=== PATIENT | male | born 1955 | race Caucasian/White ===

== ENCOUNTER → 2018-07-29 12:02 | Outpatient (CLI) | payer BC, SELFPAY ==
[2018-07-29 15:01] LABS: Anion Gap 9 (5-15); BUN 21 mg/dL (7-18); BUN/Creat Ratio 21.6 RATIO (10-20); Calcium,Total 9.1 mg/dL (8.5-10.1); Chloride 102 mmol/L (98-107); Cholesterol 230 mg/dL (200); Creatinine, Serum 0.97 mg/dL (0.70-1.30); EST Glomerular Filtration Rate 83 mL/min (>60); Est Glom Filt Rate - Afr Amer 101 mL/min (>60); Glucose 92 mg/dL (74-106); High Density Lipoprotein 39 mg/dL; PSA,Total - Annual Screen 1.54 ng/mL (0.00-4.00); Potassium 4.1 mmol/L (3.5-5.1); Sodium Level 139 mmol/L (136-145); Triglycerides 163 mg/dL; Very Low Density Lipoprotein 33 mg/dL (5-40)
== END ==
PROVIDERS: Visit Provider Family Medicine
DX: I10 Essential (primary) hypertension (principal); Z12.5 Encounter for screening for malignant neoplasm of prostate
CPT/HCPCS: 36415; 80048; 80061; 84153; G0103

== ENCOUNTER → 2019-05-18 09:37 | Outpatient (CLI) | payer BC, SELFPAY ==
[2019-05-18 12:39] LABS: ALB/GLOB Ratio 1.1 RATIO (0.9-2.4); AST(SGOT) 36 U/L (15-37); Alanine Aminotransfer ALT/SGPT 53 U/L (16-61); Albumin, Serum 3.9 g/dL (3.2-5.0); Alkaline Phosphatase 91 U/L (45-117); Anion Gap 6 (5-15); BUN 13 mg/dL (7-18); BUN/Creat Ratio 14.2 RATIO (10-20); Calcium,Total 8.6 mg/dL (8.5-10.1); Chloride 105 mmol/L (98-107); Cholesterol 237 mg/dL (200); Creatinine, Serum 0.92 mg/dL (0.70-1.30); EST Glomerular Filtration Rate 89 mL/min (>60); Est Glom Filt Rate - Afr Amer 107 mL/min (>60); Globulin 3.6 g/dL (2.2-4.2); Glucose 88 mg/dL (74-106); High Density Lipoprotein 41 mg/dL; Protein, Total 7.5 g/dL (6.4-8.2); Sodium Level 139 mmol/L (136-145); Triglycerides 161 mg/dL; Very Low Density Lipoprotein 32 mg/dL (5-40)
== END ==
PROVIDERS: Family Provider Family Medicine; PCP Family Medicine; Referring Provider Family Medicine; Visit Provider Family Medicine
DX: I10 Essential (primary) hypertension (principal); Z12.5 Encounter for screening for malignant neoplasm of prostate
CPT/HCPCS: 36415; 80053; 80061; 84153; G0103

== ENCOUNTER → 2020-07-20 09:24 | Outpatient (CLI) | payer BC, SELFPAY ==
[2020-07-20 10:35] LABS: ALB/GLOB Ratio 1.1 RATIO (0.9-2.4); AST(SGOT) 25 U/L (15-37); Alanine Aminotransfer ALT/SGPT 39 U/L (16-61); Albumin, Serum 3.7 g/dL (3.2-5.0); Alkaline Phosphatase 81 U/L (45-117); Anion Gap 4 (5-15); BUN 13 mg/dL (7-18); BUN/Creat Ratio 15.2 RATIO (10-20); Chloride 106 mmol/L (98-107); Creatinine, Serum 0.86 mg/dL (0.70-1.30); EST Glomerular Filtration Rate 96 mL/min (>60); Est Glom Filt Rate - Afr Amer 116 mL/min (>60); Globulin 3.5 g/dL (2.2-4.2); Glucose 94 mg/dL (74-106); PSA,Total - Annual Screen 2.05 ng/mL (0.00-4.00); Protein, Total 7.2 g/dL (6.4-8.2); Sodium Level 141 mmol/L (136-145)
== END ==
PROVIDERS: PCP Family Medicine; Referring Provider Family Medicine; Visit Provider Family Medicine
DX: E78.5 Hyperlipidemia, unspecified (principal); Z12.5 Encounter for screening for malignant neoplasm of prostate
CPT/HCPCS: 36415; 80053; 84153; G0103

== ENCOUNTER → 2021-01-10 09:53 | Outpatient (CLI) | payer BC, SELFPAY ==
[2021-01-10 13:05] LABS: ALB/GLOB Ratio 1.1 RATIO (0.9-2.4); AST(SGOT) 32 U/L (15-37); Alanine Aminotransfer ALT/SGPT 54 U/L (16-61); Albumin, Serum 3.9 g/dL (3.2-5.0); Alkaline Phosphatase 79 U/L (45-117); Anion Gap 5 (5-15); BUN 14 mg/dL (7-18); BUN/Creat Ratio 15.5 RATIO (10-20); Calcium,Total 9.2 mg/dL (8.5-10.1); Chloride 106 mmol/L (98-107); EST Glomerular Filtration Rate 90 mL/min (>60); Est Glom Filt Rate - Afr Amer 109 mL/min (>60); Globulin 3.4 g/dL (2.2-4.2); Glucose 102 mg/dL (74-106); Potassium 3.9 mmol/L (3.5-5.1); Protein, Total 7.3 g/dL (6.4-8.2); Sodium Level 138 mmol/L (136-145)
== END ==
PROVIDERS: PCP Family Medicine; Referring Provider Family Medicine; Visit Provider Family Medicine
DX: E78.5 Hyperlipidemia, unspecified (principal); Z12.5 Encounter for screening for malignant neoplasm of prostate
CPT/HCPCS: 36415; 80053

== ENCOUNTER → 2022-02-18 | Outpatient (CLI) | payer BC, SELFPAY ==
[2022-02-18 13:03] LABS: AST(SGOT) 36 U/L (15-37); Alanine Aminotransfer ALT/SGPT 67 U/L (16-61); Albumin, Serum 3.7 g/dL (3.2-5.0); Alkaline Phosphatase 71 U/L (45-117); Anion Gap 3 (5-15); BUN 15 mg/dL (7-18); BUN/Creat Ratio 16.9 RATIO (10-20); Calcium,Total 9.1 mg/dL (8.5-10.1); Chloride 105 mmol/L (98-107); Cholesterol 150 mg/dL (200); Creatinine, Serum 0.89 mg/dL (0.70-1.30); EST Glomerular Filtration Rate 91 mL/min (>60); Est Glom Filt Rate - Afr Amer 111 mL/min (>60); Globulin 3.6 g/dL (2.2-4.2); Glucose 97 mg/dL (74-106); High Density Lipoprotein 45 mg/dL; Potassium 4.4 mmol/L (3.5-5.1); Protein, Total 7.3 g/dL (6.4-8.2); Sodium Level 139 mmol/L (136-145); Triglycerides 123 mg/dL
[2022-02-18 13:04] LABS: PSA,Total - Annual Screen 2.07 ng/mL (0.00-4.00); Very Low Density Lipoprotein 25 mg/dL (5-40)
== END | disposition home or self-care (01) ==
LOC: MFPLAB 09:31
PROVIDERS: PCP Family Medicine; Visit Provider Family Medicine
DX: E78.5 Hyperlipidemia, unspecified (principal); I10 Essential (primary) hypertension; Z12.5 Encounter for screening for malignant neoplasm of prostate
CPT/HCPCS: 36415; 80053; 80061; 84153; G0103

== ENCOUNTER → 2024-01-07 | Outpatient (CLI) | payer BC, SELFPAY ==
[2024-01-07 12:46] LABS: ALB/GLOB Ratio 1.1 RATIO (0.9-2.4); AST(SGOT) 49 U/L (15-37); Alanine Aminotransfer ALT/SGPT 59 U/L (16-61); Albumin, Serum 3.8 g/dL (3.2-5.0); Alkaline Phosphatase 69 U/L (45-117); Anion Gap 6 (5-15); BUN 20 mg/dL (7-18); BUN/Creat Ratio 20.2 RATIO (10-20); Calcium,Total 8.8 mg/dL (8.5-10.1); Chloride 103 mmol/L (98-107); Cholesterol 240 mg/dL (200); Creatinine, Serum 0.99 mg/dL (0.70-1.30); EST Glomerular Filtration Rate 80 mL/min (>60); Est Glom Filt Rate - Afr Amer 97 mL/min (>60); Globulin 3.4 g/dL (2.2-4.2); Glucose 104 mg/dL (74-106); High Density Lipoprotein 38 mg/dL; PSA,Total - Annual Screen 2.47 ng/mL (0.00-4.00); Potassium 3.7 mmol/L (3.5-5.1); Protein, Total 7.2 g/dL (6.4-8.2); Sodium Level 137 mmol/L (136-145); Triglycerides 192 mg/dL; Very Low Density Lipoprotein 38 mg/dL (5-40)
[2024-01-07 18:33] LABS: Microalbumin,Random Urine 18.5 mg/L (NO RANGE EST.)
== END | disposition home or self-care (01) ==
LOC: MFPLAB 10:05
PROVIDERS: PCP Family Medicine; Visit Provider Family Medicine
DX: E78.5 Hyperlipidemia, unspecified (principal); Z12.5 Encounter for screening for malignant neoplasm of prostate
CPT/HCPCS: 36415; 80053; 80061; 82043; 84153; G0103

== ENCOUNTER → 2025-02-07 | Outpatient (CLI) | payer MEDICARE, SELFPAY ==
[2025-02-07 12:58] LABS: ALB/GLOB Ratio 1.5 RATIO (0.9-2.4); AST(SGOT) 37 U/L (<=37); Alanine Aminotransfer ALT/SGPT 46 U/L (<=46); Albumin, Serum 4.3 g/dL (3.4-4.8); Alkaline Phosphatase 73 U/L (40-129); Anion Gap 13 (5-15); BUN 19 mg/dL (4-19); BUN/Creat Ratio 21.4 RATIO (10-20); Calcium,Total 9.5 mg/dL (7.6-11.0); Carbon Dioxide 25.8 mmol/L (21.0-32.0); Chloride 102 mmol/L (98-108); Creatinine, Serum 0.87 mg/dL (0.70-1.20); EST Glomerular Filtration Rate 94 (>60); Globulin 2.8 g/dL (2.2-4.2); Glucose 100 mg/dL (70-99); PSA,Total - Annual Screen 1.86 ng/mL (0.02-4.00); Potassium 3.8 mmol/L (3.3-5.1); Sodium Level 140 mmol/L (133-145); Total Bilirubin 0.57 mg/dL (0.00-1.30)
== END | disposition home or self-care (01) ==
LOC: MFPLAB 10:01
PROVIDERS: PCP Family Medicine; Referring Provider Family Medicine; Visit Provider Family Medicine
DX: Z00.00 Encounter for general adult medical examination without abnormal findings (principal); E78.5 Hyperlipidemia, unspecified; Z12.5 Encounter for screening for malignant neoplasm of prostate
CPT/HCPCS: 36415; 80053; 84153; G0103

== ENCOUNTER → 2025-07-06 | Outpatient (CLI) | payer MEDICARE, SELFPAY ==
[2025-07-06 10:44] LABS: Hematocrit 43.2 % (40-54); Hemoglobin 14.5 g/dL (13.0-16.5); Immature Granulocytes Count 0.040 X10^3/uL (0.0-0.0); Mean Corp Hgb Conc 33.6 g/dL (32-36); Mean Corpuscular Volume 88.0 fL (80-94); Mean Platelet Vol. 11.5 fl (6.2-12.0); NRBC Flagged by Analyzer 0 % (0-5); Platelet Count 201 K/mm3 (150-450); RBC Distribution Width CV 12.8 % (11.6-14.6); RBC Distribution Width SD 41.1 fl (35.1-43.9); Red Blood Count 4.91 M/mm3 (4.6-6.2); White Blood Count 8.6 K/mm3 (4.4-11.0)
[2025-07-06 11:14] LABS: Anion Gap 10 (5-15); BUN 16 mg/dL (4-19); BUN/Creat Ratio 18.5 RATIO (10-20); Calcium,Total 9.6 mg/dL (7.6-11.0); Carbon Dioxide 28.4 mmol/L (21.0-32.0); Chloride 100 mmol/L (98-108); Glucose 103 mg/dL (70-99); Potassium 4.0 mmol/L (3.3-5.1)
== END | disposition home or self-care (01) ==
LOC: LAB 10:11
PROVIDERS: PCP Family Medicine; Referring Provider Internal Medicine Cardiovascular Disease; Visit Provider Internal Medicine Cardiovascular Disease
DX: I25.10 Atherosclerotic heart disease of native coronary artery without angina pectoris (principal); I10 Essential (primary) hypertension; R94.30 Abnormal result of cardiovascular function study, unspecified
CPT/HCPCS: 36415; 80048; 85025

== ENCOUNTER 2025-07-19 06:58 | Day surgery (SDC) | payer MEDICARE, OTHER, SELFPAY ==
[2025-07-18 10:48] VITALS: BMI 34.2
--- OUTSIDE RECORDS SUMMARY | 2025-07-19 07:05 | XMS RPT_ITS | CCD ---
Author Organization [facility] Care Team Providers Care Operations Manager Assistant Name Role Phone Fabby HUGHES, Dr. Sherman Primary Care Provider Fabby HUGHES, Dr. Sherman Attending Provider 1( [phone] Fabby HUGHES, Dr. Sherman Referring Provider Fabby HUGHES, Dr. Sherman Primary Care Physicia n Fabby HUGHES, Dr. Sherman Attending Physician Fabby HUGHES, Dr. Sherman Referring Provider Angel HUGHES, Dr. Hodgson Attending Physician [phone] Sreekanth Ortizril Attending Unavailable Sreekanth Ortizril Referring Unavailable Lane Sequeira Primary Care Unavailable Lane Sequeira Primary Care Unavailable Lane Sequeira Attending Unavailable Lane Sequeira Referring Unavailable AngelSreekanth wallril Attending Unavailable AngelSreekanth wallril Referring Unavailable Lane Sequeira Primary Care Unavailable Lane Sequeira Primary Care Unavailable Angel, Clendenin Attending Unavailable Lane Sequeira Referring Unavailable Lane Sequeira Primary Care Unavailable Angel, Gokul Attending Unavailable Lane Sequeira Referring Unavailable Lane Sequeira Primary Care Unavailable Lane Sequeira Attending Unavailable Lane Sequeira Referring Unavailable Allergies Allergy Classification Reported Allergen(s) Allergy Type Date of Onset Reaction(s) Facility (1 source) Ramipril Drug Allergy 07-06-2025 Other [facility] (1 source) Ramipril Drug Allergy 07-06-2025 [facility] Repository Medications Current Medications Medication Drug Class(es) Dates Sig (Normalized) Sig (Original) amLODIPine 5 mg oral tablet (1 source) Dihydropyridine Calcium Channel Kedar Start: 07-06-20 take 1 tablet by mouth once daily Amlodipine 5 mg tablet Active 5 mg PO daily July 06, 2025 12:00am Complies with drug therapy aspirin 81 mg delayed release oral tablet (1 source) Platelet Aggregation Inhibitor, Nonsteroidal Anti-inflammatory Drug Start: 07-06-20 take 1 tablet by mouth once daily Aspirin 81 mg tablet,delayed release (DR/EC) Active 81 mg PO daily July 06, 2025 12:00am Complies with drug therapy atorvastatin 40 mg oral tablet (1 source) HMG-CoA Reductase Inhibitor Start: 07-06-20 take 1 tablet by mouth once daily Atorvastatin 40 mg tablet Active 40 mg PO daily July 06, 2025 12:00am Complies with drug therapy hydroCHLOROthiazide 25 mg oral tablet (1 source) Thiazide Diuretic Start: 06-02-20 take 1 tablet by mouth once daily Hydrochlorothiazide 25 mg tablet Active 25 mg PO daily June 02, 2025 12:00am Complies with drug therapy losartan potassium 100 mg oral tablet (1 source) Angiotensin 2 Receptor Kedar Start: 06-02-20 take 1 tablet by mouth once daily Losartan 100 mg tablet Active 100 mg PO daily June 02, 2025 12:00am Complies with drug therapy Problems Problem Classification Problem Date Documented Date Episodic/Chronic Abdominal pain (1 source) Indigestion; Translations: [Epigastric pain] 06-02-2025 Episodic Coronary atherosclerosis and other heart disease (1 source) 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; Translations: [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] Onset: 07-06-2025 Chronic Disorders of lipid metabolism (3 sources) Hyperlipidemia; Translations: [Hyperlipidemia, unspecified] Onset: 05-11-2025 06-02-2025 Chronic Essential hypertension (3 sources) Essential hypertension; Translations: [Essential (primary) hypertension] Onset: 07-06-2025 06-02-2025 Chronic Other screening for suspected conditions (not mental disorders or infectious disease) (4 sources) Cardiac function test abnormal; Translations: [Abnormal result of cardiovascular function study, unspecified] Onset: 07-06-2025 06-02-2025 Episodic Results Test Name Value Interpretation Reference Range Facility Basic Metabolic Profile (BMP )on 10-08-2025 BUN/CRE 18.5 RATIO Normal 10-20 [facility] Comment on above: Performed By: #### L 500.2500, L100.0100 #### [facility] [address] [place], [address] Calcium [Mass/Vol] 9.6 mg/dL Normal 7.6-11.0 [facility] Comment on above: Performed By: #### L 500.2500, L100.0100 #### [facility] [address] [place], [address] Chloride [Moles/Vol] 100 mmol/L Normal 98-108 [facility] Comment on above: Performed By: #### L 500.2500, L100.0100 #### [facility] [address] [place], [address] CO2 [Moles/Vol] 28.4 mmol/L Normal 21.0-32.0 [facility] Comment on above: Performed By: #### L 500.2500, L100.0100 #### [facility] [address] [place], [address] Creatinine [Mass/Vol] 0.86 mg/dL Normal 0.70-1.20 [facility] Comment on above: Performed By: #### L 500.2500, L100.0100 #### [facility] [address] [place], [address] GAP 10 Normal 5-15 [facility] Comment on above: Performed By: #### L 500.2500, L100.0100 #### [facility] [address] [place], [address] GFR/1.73 sq M.predicted among non-blacks MDRD (S/P/Bld) [Vol rate/Area] 94 mL/min/{1.73_m2} Normal >60 [facility] Comment on above: Result Comment: mL/m in/1.73m2 CKD-EPI Creatinine Equation (2020) Performed By: #### L 500.2500, L100.0100 #### [facility] [address] [place], [address] Glucose [Mass/Vol] 103 mg/dL High 70-99 [facility] Comment on above: Performed By: #### L 500.2500, L100.0100 #### [facility] [address] [place], [address] Potassium [Moles/Vol] 4.0 mmol/L Normal 3.3-5.1 [facility] Comment on above: Performed By: #### L 500.2500, L100.0100 #### [facility] [address] [place], [address] Sodium [Moles/Vol] 139 mmol/L Normal 133-145 [facility] Comment on above: Performed By: #### L 500.2500, L100.0100 #### [facility] [address] [place], [address] Urea nitrogen [Mass/Vol] 16 mg/dL Normal 4-19 [facility] Comment on above: Performed By: #### L 500.2500, L100.0100 #### [facility] [address] [place], [address] CBC W/Diff, Automatedon 10-0 Absolute Lymph 2.68 X10 3/uL Normal 0.83-4.51 [facility] Comment on above: Performed By: #### L 500.2500, L100.0100 #### [facility] [address] [place], [address] Absolute Neut 4.8 X10 3/uL Normal 2.0-7.7 [facility] Comment on above: Performed By: #### L 500.2500, L100.0100 #### [facility] [address] [place], [address] Basophils/100 WBC (Bld) 0.9 % Normal 0-1 [facility] Comment on above: Performed By: #### L 500.2500, L100.0100 #### [facility] [address] [place], [address] Eosinophils/100 WBC (Bld) 2.2 % Normal 0-5 [facility] Comment on above: Performed By: #### L 500.2500, L100.0100 #### [facility] [address] [place], [address] Erythrocyte distribution width (RBC) [Ratio] 12.8 % Normal 11.6-14.6 [facility] Comment on above: Performed By: #### L 500.2500, L100.0100 #### [facility] [address] [place], [address] Hematocrit (Bld) [Volume fraction] 43.2 % Normal 40-54 [facility] Comment on above: Performed By: #### L 500.2500, L100.0100 #### [facility] [address] [place], [address] Hemoglobin (Bld) [Mass/Vol] 14.5 g/dL Normal 13.0-16.5 [facility] Comment on above: Performed By: #### L 500.2500, L100.0100 #### [facility] [address] [place], [address] IG% 0.500 Normal 0.0-0.9 [facility] Comment on above: Result Comment: IG% - Immature Granulocytes (promyelocytes, myelocytes and metamyelocytes) > 1% indicates that a LEFT SHIFT is Present. Performed By: #### L 500.2500, L100.0100 #### [facility] [address] [place], [address] Lymphocytes/100 WBC (Bld) 31.1 % Normal 19-41 [facility] Comment on above: Performed By: #### L 500.2500, L100.0100 #### [facility] [address] [place], [address] MCH (RBC) [Entitic mass] 29.5 pg Normal 27.0-32.0 [facility] Comment on above: Performed By: #### L 500.2500, L100.0100 #### [facility] [address] [place], [address] MCHC (RBC) [Mass/Vol] 33.6 g/dL Normal 32-36 [facility] Comment on above: Performed By: #### L 500.2500, L100.0100 #### [facility] [address] [place], [address] MCV (RBC) [Entitic vol] 88.0 fL Normal 80-94 [facility] Comment on above: Performed By: #### L 500.2500, L100.0100 #### [facility] [address] [place], [address] Monocytes/100 WBC (Bld) 9.4 % Normal 0-10 [facility] Comment on above: Performed By: #### L 500.2500, L100.0100 #### [facility] [address] [place], [address] Neutrophils/100 WBC (Bld) 55.9 % Normal 47-70 [facility] Comment on above: Performed By: #### L 500.2500, L100.0100 #### [facility] [address] [place], [address] Nucleated RBC (Bld) [#/Vol] 0 10*3/uL Normal 0-5 [facility] Comment on above: Performed By: #### L 500.2500, L100.0100 #### [facility] [address] [place], [address] Platelet mean volume (Bld) [Entitic vol] 11.5 fL Normal 6.2-12.0 [facility] Comment on above: Performed By: #### L 500.2500, L100.0100 #### [facility] [address] [place], [address] Platelets (Bld) [#/Vol] 201 10*3/uL Normal 150-450 [facility] Comment on above: Performed By: #### L 500.2500, L100.0100 #### [facility] [address] [place], [address] RBC (Bld) [#/Vol] 4.91 10*6/uL Normal 4.6-6.2 [facility] Comment on above: Performed By: #### L 500.2500, L100.0100 #### [facility] [address] [place], [address] RDW SD 41.1 fl Normal 35.1-43.9 [facility] Comment on above: Performed By: #### L 500.2500, L100.0100 #### [facility] [address] [place], [address] WBC (Bld) [#/Vol] 8.6 10*3/uL Normal 4.4-11.0 [facility] Comment on above: Performed By: #### L 500.2500, L100.0100 #### [facility] [address] [place], [address] Cardiology Visit Reporton Cardiology Visit Report [facility] [address] [place] [address] OFFICE VISIT Date of Service: 07/06/25 MR#: [id number] Acct: [id number] Name: LANE PEREZ MICAELA Rep #: [id number] : 1955 Provider: Dr. Gokul Ortiz MD Age/Sex: 70/M Location: [facility] [place] Status: Signed HPI HPI History of Present Illness Details: Pleasant 70-year-old male with a history of hypertension, hyperlipidemia, who underwent a routine coronary calcium score which was noted to be markedly abnormal. He is denied any chest pain or shortness breath or paroxysmal nocturnal dyspnea or pedal edema he has had no neck arm or jaw discomfort suggest angina. He tells me that he plays routine tennis and actually does well at it and after his second wind he is able to play through it without any problems. He has been on lipid- lowering therapy intermittently but his last lipid profile did demonstrate an LDL of 164 HDL of 38 and total cholesterol of 240. His coronary calcium score demonstrated a total calcium score of 2227 with a left main demonstrating 143, LAD of 930, left circumflex of 485 and right coronary artery of 669. He was referred to us on the basis of the above. His physical exam is unremarkable and his electrocardiogram demonstrates sinus rhythm with a rate of 71 bpm and no acute changes. Intake Vital Signs 07/06/25 09:35 Height 5 ft 11 in Weight: 245 lb BMI 34.2 BP 150/92 H Blood Pressure Location Lt brachial Position Sitting Respiration 16 Pulse 73 Pulse Source Monitor Intake Visit Reasons: ABN CCTA (FABBY) Accompanied by: Self Is patient in pain?: No Allergies ramipril Allergy (Severe, Verified 07/06/25 09:32) Other Medications ???Medication ???Instructions ???Recorded ???Confirmed ???Type hydrochlorothiazide 25 mg tablet 25 mg PO QDAY 06/02/25 07/06/25 Hi story losartan 100 mg tablet 100 mg PO QDAY 06/02/25 07/06/25 H istory amlodipine 5 mg tablet 5 mg PO QDAY 07/06/25 07/06/25 His tory aspirin 81 mg tablet,delayed 81 mg PO QDAY 07/06/25 07/06/25 Hi story release atorvastatin 40 mg tablet 40 mg PO QDAY 07/06/25 07/06/25 Hi story Have you fallen in the past year?: No PFSH Medical History Dyspepsia Hyperlipidemia Essential (primary) hypertension Cardiac function test abnormal Surgical History Hx of hand surgery Social History Smoking Status: Never smoker alcohol intake: current alcohol intake frequency: holidays/special occasions only substance use type: does not use ROS Const Const: Negative for fatigue, weakness, daytime sleepiness or difficulty sleeping ENT ENT: Negative for dizziness or Nosebleed/epistaxis Cardio Chest Pain: No Palpitations: No Edema: None Resp Respiratory: Negative for SOB with activity, SOB at rest, SOB orthopnea SOB lying down or Cough GI GI: Negative nausea, vomiting or heartburn Neuro Neuro: Negative for dizziness, lightheadedness, near syncope or weakness Endo Endo: Negative for fatigue Cardiology Exam Const Appearance: cooperative, healthy appearing, no acute distress, well developed and well groomed Nutritional Appearance: average body habitus and well nourished Orientation: alert, awake and oriented x3 Head Head: normal to inspection, normocephalic and atraumatic Ears: hearing grossly normal bilaterally and external ears normal Nose: external nose normal, nares normal, nasal mucous membranes and turbinates normal, septum normal and no nasal discharge Face and Sinus: face symmetric Mouth: oral mucosae normal, tongue normal, oropharynx normal and moist mucous membranes Teeth and gingiva: dentition normal Throat: posterior oropharynx normal, tonsils normal and uvula midline Eyes General: appearance normal, both eyes and all related structures Eyelids: eyelids normal Conjunctivae: conjunctivae normal Pupils: PERRL, normal by confrontation and accommodation normal EOM: EOM intact bilaterally Neck Neck: normal visual inspection, trachea midline and no JVD JVD: +5 Carotids: normal carotid upstroke and bounding pulses Chest Chest inspection: normal inspection of the chest, symmetric chest movement and normal respiratory effort Auscultation: Bilateral: Clear to Auscultation Cardio Palpation: normal PMI Rate: regular rate Rhythm: regular rhythm Heart sounds: S1 normal, S2 normal and normal, physiologic split S2; Negative rub, gallop or murmur GI GI: normal to inspection, soft, no hepatosplenomegaly and bowel sounds present Neuro General: patient alert, patient awake, patient oriented x3, gait normal, moves all extremities and no focal sensory deficit Skin Skin: n (more content not included)... Normal [facility] Coronary Angiography CTon Coronary Angiography CT [facility] Imaging Services [address] [place] [address] 05/12/25 0650 MR#: [id number] Acct: [id number] Name: LANE PEREZ Rep #: [id number] : 1955 69 From: Gokul Ortiz MD PCP: Dr. Lane Sequeira MD Status:REG REF Y Location: CT Calcium Scoring Date of Study:: 05/11/25 Indications Indications: Hyperlipidemia Coronary Calcium Scoring: High-resolution Computed Tomographic imaging of the chest was performed on [05/11/2025], with particular attention paid to the coronary arteries. Images from the examination were analyzed for the presence and extent of coronary artery calcification , using coronary calcium quantification software. The patient tolerated the procedure well and there were no complications. The results of the coronary calcification analysis are provided below. Findings Coronary Artery Left Main (LM): 143 Left Anterior Descending (LAD): 930 Left Circumflex (LCX): 485 Right Coronary Artery (RCA): 669 Total Agatston Score: 2,227 Percentile Ranking: Greater than 90th percentile Calcium Scoring Interpretation: Different methods to categorize the overall amount of coronary plaque. Overall amount CAC SIS Visual of coronary plaque P1 Mild -100 <2 1-2 vessels with mild amount of plaque P2 Moderate 101-300 3-4 1-2 vessels with moderate amount, 3 vessels with mild amount of plaque P3 Severe 301-999 5-7 3 vessels with moderate amount, 1 vessel with severe amount of plaque P4 Extensive >1000 >8 2-3 vessels with severe amount of plaque Calcium Score: Extensive: 2-3 vessels w/severe amount of plaque Conclusion: Extensive three-vessel plaquing noted. 05/12/25 0652 Date Gokul Fishman Signature (if applicable): Date CC: Dr. Lane Sequeira MD; Dr. Gokul Ortiz MD Signed Normal [facility] Limited Chest CT Cardiac Onl yon 05-11-[address] Cardiac Only [facility] Imaging Services [address] [place], [place] [address] Limited Chest CT Cardiac Only MR#: [id number] Acct: [id number] Name: LANE PEREZ Rep #: [id number] : 1955 M Aaron From: Francisco garber MD PCP: Dr. Lane Sequeira MD Status: REG REF Study: Limited Chest CT Cardiac Only Date of Exam: Exam# [id number] Ordering Dr: Lane Sequeira PROCEDURE: LIMITED CHEST CT CARDIAC ONLY 05/11/2025 REASON FOR EXAM: HYPERLIPIDEMIA TECHNIQUE: LIMITED CHEST CT CARDIAC ONLY CONT RAST: None One or more dose reduction techniques were used (e.g., Automated exposure control, adjustment of the mA and/or kV according to patient size, use of iterative reconstruction technique). RADIATION DOSE SUMMARY: CTDlvol: 12.19 mGy DLP: 219.40 mGycm COMPARISON: None FINDINGS: Small benign-appearing mediastinal lymph nodes. Moderate degree of coronary artery calcification. The heart is not enlarged. Minimal thickening of the anterior pericardium. The visualized portions of the lungs are unremarkable. CT/Limited Chest CT Cardiac Only IMPRESSION: Coronary artery calcification. Reading Location: [id number] CC: Dr. Lane Sequeira MD [employer] Lead: Signed Normal [facility] Anion gap in Serum or Plasma Ordered By: Lane Sequeira on 02-07-2025 Anion gap [Moles/Vol] 13 mmol/L 5-15 [facility] BUN/creatinine ratioOrdered By: Lane Sequeira on 02-07-2025 Urea nitrogen/Creatinine [Mass ratio] 21.4 mg/mg High 10-20 [facility] Bilirubin, totalOrdered By: Lane Sequeira on 02-07-2025 Bilirubin [Mass/Vol] 0.57 mg/dL 0.00-1.30 [facility] Carbon dioxide, total [Moles /volume] in Central venous bloodOrdered By: Lane Sequeira on 02-07-2025 CO2 [Moles/Vol] 25.8 mmol/L 21.0-32.0 [facility] Chloride assayOrdered By: Freddie Sequeira on 02-07-2025 Chloride [Moles/Vol] 102 mmol/L 98-108 [facility] Comprehensive Metabolic Prof ilon 02-07-2025 Albumin [Mass/Vol] 4.3 g/dL Normal 3.4-4.8 [facility] Comment on above: Performed By: #### L 501.9910, L500.4050 #### [facility] [address] [place], [address] Albumin/Globulin [Mass ratio] 1.5 {ratio} Normal 0.9-2.4 [facility] Comment on above: Performed By: #### L 501.9910, L500.4050 #### [facility] [address] [place], [address] ALK PHOS 73 U/L Normal 40-129 [facility] Comment on above: Performed By: #### L 501.9910, L500.4050 #### [facility] [address] [place], [address] ALT [Catalytic activity/Vol] 46 U/L Normal <=46 [facility] Comment on above: Performed By: #### L 501.9910, L500.4050 #### [facility] [address] [place], [address] AST [Catalytic activity/Vol] 37 U/L Normal <=37 [facility] Comment on above: Performed By: #### L 501.9910, L500.4050 #### [facility] [address] [place], [address] Bilirubin [Mass/Vol] 0.57 mg/dL Normal 0.00-1.30 [facility] Comment on above: Performed By: #### L 501.9910, L500.4050 #### [facility] [address] [place], [address] BUN/CRE 21.4 RATIO High 10-20 [facility] Comment on above: Performed By: #### L 501.9910, L500.4050 #### [facility] [address] [place], [address] Calcium [Mass/Vol] 9.5 mg/dL Normal 7.6-11.0 [facility] Comment on above: Performed By: #### L 501.9910, L500.4050 #### [facility] [address] [place], [address] Chloride [Moles/Vol] 102 mmol/L Normal 98-108 [facility] Comment on above: Performed By: #### L 501.9910, L500.4050 #### [facility] [address] [place], [address] CO2 [Moles/Vol] 25.8 mmol/L Normal 21.0-32.0 [facility] Comment on above: Performed By: #### L 501.9910, L500.4050 #### [facility] [address] [place], [address] Creatinine [Mass/Vol] 0.87 mg/dL Normal 0.70-1.20 [facility] Comment on above: Performed By: #### L 501.9910, L500.4050 #### [facility] [address] [place], [address] GAP 13 Normal 5-15 [facility] Comment on above: Performed By: #### L 501.9910, L500.4050 #### [facility] [address] [place], [address] GFR/1.73 sq M.predicted among non-blacks MDRD (S/P/Bld) [Vol rate/Area] 94 mL/min/{1.73_m2} Normal >60 [facility] Comment on above: Result Comment: mL/m in/1.73m2 CKD-EPI Creatinine Equation (2020) Performed By: #### L 501.9910, L500.4050 #### [facility] [address] [place], [address] Globulin (S) [Mass/Vol] 2.8 g/dL Normal 2.2-4.2 [facility] Comment on above: Performed By: #### L 501.9910, L500.4050 #### [facility] [address] [place], [address] Glucose [Mass/Vol] 100 mg/dL High 70-99 [facility] Comment on above: Performed By: #### L 501.9910, L500.4050 #### [facility] [address] [place], [address] Potassium [Moles/Vol] 3.8 mmol/L Normal 3.3-5.1 [facility] Comment on above: Performed By: #### L 501.9910, [id number] #### [facility] [address] [place], [address] Sodium [Moles/Vol] 140 mmol/L Normal 133-145 [facility] Comment on above: Performed By: #### L [id number], [id number] #### [facility] [address] [place], [address] T PROT 7.0 g/dL Normal 5.9-8.4 [facility] Comment on above: Performed By: #### L [id number], [id number] #### [facility] [address] [place], [address] Urea nitrogen [Mass/Vol] 19 mg/dL Normal 4-19 [facility] Comment on above: Performed By: #### L [id number], [id number] #### [facility] [address] [place], [place], [address] Glomerular filtration rate ( GFR) estimation/1.73 sq m using serum, plasma, or whole bOrdered By: Lane Sequeira on 02-07-2025 GFR/1.73 sq M.predicted among non-blacks MDRD (S/P/Bld) [Vol rate/Area] 94 mL/min/{1.73_m2} >60 [facility] Comment on above: mL/min/1.73m2 CKD-EP I Creatinine Equation (2020) Laboratory - Chemistry and C hemistry - challengeOrdered By: Lane Sequeira on 02-07-2025 AST [Catalytic activity/Vol] 37 U/L <38 [facility] PSA,Total - Annual Screenon 02-07-2025 PSA,TOT SCREEN 1.86 ng/mL Normal 0.02-4.00 [facility] Comment on above: Result Comment: This test was performed using the [employer] tPSA method. Measured values of a patient??sample can vary depending on the testing procedure used. PSA values determined on patient samples by different testing procedures cannot be used interchangeably. If there is a change in PSA assays while monitoring therapy, sequential testing should be performed to confirm baseline values. Performed By: #### L 501.9910, [id number] #### [facility] [address] [place], [address] Potassium measurement (mass/ volume)Ordered By: Lane Sequeira on 02-07-2025 Potassium (Unsp spec) [Mass/Vol] 3.8 mmol/L 3.3-5.1 [facility] Serum creatinine measurement (mass/volume)Ordered By: Lane Sequeira on 02-07-2025 Creatinine [Mass/Vol] 0.87 mg/dL 0.70-1.20 [facility] Serum globulin measurementOr dered By: Lane Sequeira on 02-07-2025 Globulin (S) [Mass/Vol] 2.8 g/dL 2.2-4.2 [facility] Serum glucose measurement (m ass/volume)Ordered By: Lane Sequeira on 02-07-2025 Glucose [Mass/Vol] 100 mg/dL High 70-99 [facility] Serum or plasma alanine mcneil otransferase (ALT) measurementOrdered By: Lane Sequeira on 02-07-2025 ALT [Catalytic activity/Vol] 46 U/L <47 [facility] Serum or plasma albumin lópez urement (mass/volume)Ordered By: Lane Sequeira on 02-07-2025 Albumin [Mass/Vol] 4.3 g/dL 3.4-4.8 [facility] Serum or plasma albumin/glob ulin mass ratioOrdered By: Lane Sequeira on 02-07-2025 Albumin/Globulin [Mass ratio] 1.5 {ratio} 0.9-2.4 [facility] Serum or plasma alkaline adonay sphatase measurementOrdered By: Lane Sequeira on 02-07-2025 ALP [Catalytic activity/Vol] 73 U/L 40-129 [facility] Serum or plasma calcium lópez urement (mass/volume)Ordered By: Lane Sequeira on 02-07-2025 Calcium [Mass/Vol] 9.5 mg/dL 7.6-11.0 [facility] Serum or plasma urea nitroge n measurement (mass/volume)Ordered By: Lane Sequeira on 02-07-2025 Urea nitrogen [Mass/Vol] 19 mg/dL 4-19 [facility] Sodium levelOrdered By: Ellyn Sequeira on 02-07-2025 Sodium [Moles/Vol] 140 mmol/L 133-145 [facility] Total proteinOrdered By: Ban istopher Sequeira on 02-07-2025 Protein [Mass/Vol] 7.0 g/dL 5.9-8.4 [facility] Basophil percentageOrdered B y: Lane Sequeira on 01-07-2024 Bilirubin [Mass/Vol] 0.90 mg/dL 0.20-1.00 [facility] Comment on above: For patients on eltr ombopag therapy, use of Dimension [place] TBIL is not recommended. Chloride [Moles/Vol] 103 mmol/L 98-107 [facility] Cholesterol [Mass/Vol] 240 mg/dL <200 [facility] Comment on above: <200 mg/dL Desirable 200-240 mg/dL Borderline >240 mg/dL High Risk Glucose [Mass/Vol] 104 mg/dL 74-106 [facility] Comment on above: Fasting Glucose resu lt from 100 to 125 mg/dL suggests IMPAIRED HOMEOSTASIS per A.D.A. criteria. Potassium [Moles/Vol] 3.7 mmol/L 3.5-5.1 [facility] Protein [Mass/Vol] 7.2 g/dL 6.4-8.2 [facility] Sodium [Moles/Vol] 137 mmol/L 136-145 [facility] Triglyceride [Mass/Vol] 192 mg/dL <199 [facility] Comment on above: The drugs N-Acetylcy steine and Metamizole may falsely depress this assay.Serum Triglycerides Reference Interval Normal <150 mg/dL Borderline high 150 - 199 mg/dL High 200 - 499 mg/dL Very High > or = 500 mg/dL Laboratory - Chemistry and C hemistry - challengeOrdered By: Lane Sequeira on 01-07-2024 Albumin/Globulin [Mass ratio] 1.1 {ratio} 0.9-2.4 [facility] ALP [Catalytic activity/Vol] 69 U/L 45-117 [facility] ALT [Catalytic activity/Vol] 59 U/L 16-61 [facility] Cholesterol in HDL [Mass/Vol] 38 mg/dL >40 [facility] Comment on above: The drugs N-Acetylcy steine and Metamizole may falsely depress this assay. Reference Range HDL <40 mg/dL Low HDL Cholesterol HDL >or= 60 mg/dL High HDL Cholesterol Cholesterol in LDL [Mass/Vol] 164 mg/dL 0-130 [facility] CO2 [Moles/Vol] 28.0 mmol/L 21.0-32.0 [facility] Globulin (S) [Mass/Vol] 3.4 g/dL 2.2-4.2 [facility] Urea nitrogen/Creatinine [Mass ratio] 20.2 mg/mg 10-20 [facility] No Panel InformationOrdered By: Lane Sequeira on 01-07-2024 Estimated GFR (MDRD) Amer 97 mL/min >60 [facility] Comment on above: GFR Calc Estimated GFR (MDRD) Non-Af Amer 80 mL/min >60 [facility] Comment on above: Non- GFR Calc Prostate Specific Antigen Screen 2.47 ng/mL 0.00-4.00 [facility] Comment on above: This test was perfor med using the TPSA assay method for [employer] system. Values obtained with differentassay methods cannot be used interchangably.When changing PSA assays in the course of monitoring apatient, additional sequential testing should be carriedout to confirm baseline values. VLDL Cholesterol 38 mg/dL 5-40 [facility] Serum or plasma calcium lópez urement (mass/volume)Ordered By: Lane Sequeira on 01-07-2024 Calcium [Mass/Vol] 8.8 mg/dL 8.5-10.1 [facility] Serum or plasma creatinine m easurement (mass/volume)Ordered By: Lane Sequeira on 01-07-2024 Creatinine [Mass/Vol] 0.99 mg/dL 0.70-1.30 [facility] Comment on above: The validity of the calculated GFR & GFRAA in patients over 70 years has not been determined. Clinical correlation is essential. Serum or plasma urea nitroge n measurement (mass/volume)Ordered By: Lane Sequeira on 01-07-2024 Urea nitrogen [Mass/Vol] 20 mg/dL 7-18 [facility] Thin prep Papanicolaou smear with manual screeningOrdered By: Lane Sequeira on 01-07-2024 Thin prep Papanicolaou smear with manual screening 18.5 mg/L NO RANGE EST. [facility] Thin prep Papanicolaou smear with manual screening 3.8 g/dL 3.2-5.0 [facility] Thin prep Papanicolaou smear with manual screening 49 U/L 15-37 [facility] Thin prep Papanicolaou smear with manual screening 6 5-15 [facility] Basophil percentageon 2021 Bilirubin [Mass/Vol] 0.50 mg/dL 0.20-1.00 [facility] Work Phone: Comment on above: For patients on eltr ombopag therapy, use of Dimension [place] TBIL is not recommended. Chloride [Moles/Vol] 105 mmol/L 98-[address] [facility] [address] [facility] Work Phone: Cholesterol [Mass/Vol] 150 mg/dL <200 [facility] Work Phone: [phone] Comment on above: <200 mg/dL Desirable 200-240 mg/dL Borderline >240 mg/dL High Risk Glucose [Mass/Vol] 97 mg/dL 74-106 [facility] Work Phone: [phone] Potassium [Moles/Vol] 4.4 mmol/L 3.5-5.1 [facility] Work Phone: Protein [Mass/Vol] 7.3 g/dL 6.4-8.2 [facility] Work Phone: Sodium [Moles/Vol] 139 mmol/L 136-145 [facility] Work Phone: Triglyceride [Mass/Vol] 123 mg/dL [facility] Work Phone: Comment on above: The drugs N-Acetylcy steine and Metamizole may falsely depress this assay.Serum Triglycerides Reference Interval Normal <150 mg/dL Borderline high 150 - 199 mg/dL High 200 - 499 mg/dL Very High > or = 500 mg/dL Laboratory - Chemistry and C hemistry - challengeon 02-18-2022 ALP [Catalytic activity/Vol] 71 U/L 45-117 [facility] Work Phone: ALT [Catalytic activity/Vol] 67 U/L 16-61 [facility] Work Phone: [phone] CO2 [Moles/Vol] 31.0 mmol/L 21.0-32.0 [facility] Work Phone: Globulin (S) [Mass/Vol] 3.6 g/dL 2.2-4.2 [facility] Work Phone: Urea nitrogen/Creatinine [Mass ratio] 16.9 mg/mg 10-20 [facility] Work Phone: No Panel Informationon 02-18 Estimated GFR (MDRD) Amer 111 mL/min >60 [facility] Work Phone: Comment on above: GFR Calc Estimated GFR (MDRD) Non-Af Amer 91 mL/min >60 [facility] Work Phone: Comment on above: Non- GFR Calc Prostate Specific Antigen Screen 2.07 ng/mL 0.00-4.00 [facility] Work Phone: Comment on above: This test was perfor med using the TPSA assay method for [employer] system. Values obtained with differentassay methods cannot be used interchangably.When changing PSA assays in the course of monitoring apatient, additional sequential testing should be carriedout to confirm baseline values. Serum or plasma albumin lópez urement (mass/volume)on 02-18-2022 Albumin [Mass/Vol] 3.7 g/dL 3.2-5.0 [facility] Work Phone: Serum or plasma albumin/glob ulin mass ratioon 02-18-2022 Albumin/Globulin [Mass ratio] 1.0 {ratio} 0.9-2.4 [facility] Work Phone: Serum or plasma calcium lópez urement (mass/volume)on 02-18-2022 Calcium [Mass/Vol] 9.1 mg/dL 8.5-10.1 [facility] Work Phone: Serum or plasma cholesterol in HDL measurement (mass/volume)on 02-18-2022 Cholesterol in HDL [Mass/Vol] 45 mg/dL [facility] Work Phone: Comment on above: The drugs N-Acetylcy steine and Metamizole may falsely depress this assay. Reference Range HDL <40 mg/dL Low HDL Cholesterol HDL >or= 60 mg/dL High HDL Cholesterol Serum or plasma cholesterol in VLDL measurement (mass/volume)on 02-18-2022 Cholesterol in VLDL [Mass/Vol] 25 mg/dL 5-40 [facility] Work Phone: Serum or plasma creatinine m easurement (mass/volume)on 02-18-2022 Creatinine [Mass/Vol] 0.89 mg/dL 0.70-1.30 [facility] Work Phone: Comment on above: The validity of the calculated GFR & GFRAA in patients over 70 years has not been determined. Clinical correlation is essential. Serum or plasma low density lipoprotein (LDL) cholesterol measurement (mass/volume)on 02-18-2022 Cholesterol in LDL [Mass/Vol] 80 mg/dL 0-130 [facility] Work Phone: Serum or plasma urea nitroge n measurement (mass/volume)on 02-18-2022 Urea nitrogen [Mass/Vol] 15 mg/dL 7-18 [facility] Work Phone: Thin prep Papanicolaou smear with manual screeningon 02-18-2022 Thin prep Papanicolaou smear with manual screening 36 U/L 15-37 [facility] Work Phone: Thin prep Papanicolaou smear with manual screening 3 5-15 [facility] Work Phone: Vital Signs Date Time Vital Sign Value Performing Clinician Faci lity 07-06-2025 09:35-0400 Body height 180.[address] Sequeira MD Work Phone: [facility] 07-06-2025 09:35-0400 Body mass index (BMI) [Ratio] 34.2 kg/m2 Dr. Lane Sequeira MD Work Phone: [facility] 07-06-2025 09:35-0400 Body weight 111.[address] Sequeira MD Work Phone: [facility] 07-06-2025 09:35-0400 Diastolic blood pressure 92 mm[Hg] Dr. Lane Sequeira MD Work Phone: [facility] 07-06-2025 09:35-0400 Heart rate 73 /min Dr. Lane Sequeira MD Work Phone: [facility] 07-06-2025 09:35-0400 Respiratory rate 16 /min Dr. Lane Sequeira MD Work Phone: [facility] 07-06-2025 09:35-0400 Systolic blood pressure 150 mm[Hg] Dr. Lane Sequeira MD Work Phone: [facility] Encounters Encounter Date Encounter Type Care Provider Facility Start: 07-19-2025 ambulatory Gokul Ortiz Facility:[facility] Start: 07-06-2025 End: 07-06-[address] Gokul Ortiz MD -[facility] Work Phone: Start: 07-06-2025 End: 07-06-[address] Sequeira MD Work Phone: -[facility] Start: 05-11-2025 Non-patient / Non-visit Dr. Andrew HUGHES -[facility] Work Phone: Start: 05-11-[address] Loy Sequeira MD -[facility] Work Phone: Start: 05-11-[address] Sequeira Faci lity:[facility] Start: 04-25-2025 Encounter for genera l adult medical [facility] Start: 02-07-2025 End: 02-07-[address] Lnae Sequeira MD Work Phone: [facility] Work Phone: Start: 02-07-2025 End: 02-07-[address] Sequeira MD -Laboratory [facility] Start: 02-07-2025 End: 02-07-[address] Sequeira Facility:[facility] Start: 01-07-2024 End: 01-07-2024 ambulatory [facility] Work Phone: Start: 01-07-2024 End: 01-07-2024 Patient encounter procedure [facility]-Laboratory, [facility] Start: 02-18-2022 End: 02-18-2022 Patient encounter procedure [facility], [facility] Procedures Date Procedure Procedure Detail Performing Clinician Start: 05-11-2025 CT angiography of coronary arteries Dr. Lane Sequeira MD Work Phone: Start: 02-07-2025 Prostate specific an tigen measurement Dr. Lane Sequeira MD Work Phone: Comment on above: This test was perfor med using the [employer] tPSA method. Measured values of a patient sample can vary depending on the testing procedure used. PSA values determined on patient samples by different testing procedures cannot be used interchangeably. If there is a change in PSA assays while monitoring therapy, sequential testing should be performed to confirm baseline values. Plan of Treatment Date Care Activity Detail Author Start: 07-06-2025 Catheterization of left heart [facility] Start: 07-06-2025 End: 07-06-2025 Evaluation of diagnostic study results [facility] Basic metabolic 2008 panel with ionized calcium - Serum or Plasma [facility] spital CBC W Auto Different ial panel - Blood [facility] Payers Date Payer Category Payer Unknown 2025 Medicare [id number] 238 [id number] 2025 Self-pay [id number] 2025 Self-pay [id number] Unknown ANTHEM [id number] Unknown [id number] 2.16.8 [id number] Unknown [id number] 2.16.8 [id number] Unknown [id number] 2.16.8 [id number] Unknown [id number] 2.16.8 [id number] Unknown [id number] 2.16.8 [id number] Unknown [id number] 2.16.8 [id number] Social History Date Type Detail [facility] Work Phone: Start: 1955 Sex Assigned At Male [facility] smoked [facility] Work Phone: Start: 06-02-2025 [facility] (finding) [facility] Sex Male [facility] Evaluation note Note Date & Type Note Facility Evaluation note No assessment information availa ble [facility] Work Phone: Evaluation note Note Date & Type Note Facility Evaluation note Diagnosis Onset Date Resolution Cardiac function test abnormal acute July 06 9:22am Essential (primary) hypertension acute July 06 9:22am [facility] Work Phone: Reason for referral (narrative) Note Date & Type Note Facility Reason for referral (narrative) No reason for referral information available [facility] Work Phone: Chief Complaint and Reason for Visit Chief Complaint Admit Date HYPERLIPEMIA May 11, 2025 7: 47am CT CALCIUM SCORING May 11, 2025 7: 49am ABN CCTA (FABBY) July 06, 2025 9: 22am Reason for Visit Admit Date Cardiac function test abnormal July 062024 9:22am Essential (primary) hypertension July 06, 2025 9:22am Summary Purpose Family History No Family History Records Found Advance Directives No Advanced Directives Records Found Additional Source Comments Goals (unrecognized section and content) Goals may be documented in a n alternate sectionGoals may be documented in an alternate sectionGoals may be documented in an alternate sectionGoals may be documented in an alternate section Care Teams (unrecognized sec tion and content) Team Status: Active Member Role Status Dates Dr. Lane Sequeira MD Family Provider Active Dr. Lane Sequeira MD Primary Care Provider Acti ve Team Status: Inactive Member Role Status Dates Dr. Lane Sequeira MD Primary Care Provider, Att ending Provider Active Team Status: Inactive Member Role Status Dates Dr. Lane Sequeira MD Primary Care Provider Acti ve Start: February 07, 2025 End: February 07, [address] Sequeira MD Attending Provider Active Start: February 07, 2025 End: February 07, [address] Sequeira MD Referring Provider Active Start: February 07, 2025 End: February 07, 2025 Team Status: Active Member Role/Relationship Status Dates Dr. Lane Sequeira MD Primary care physician Act herb Team Status: Active Member Role/Relationship Status Dates Dr. Lane Sequeira MD Primary care physician Act herb Start: May 11, [address] Sequeira MD Attending physician Active Start: May 11, [address] Sequeira MD Referring Provider Active Start: May 11, 2025 Team Status: Active Member Role/Relationship Status Dates Dr. Lane Sequeira MD Primary care physician Act herb Start: May 11, [address] Sequeira MD Referring Provider Active Start: May 11, 2025 Dr. Gokul Ortiz MD Attending physician Active Start: May 11, 2025 Team Status: Inactive Member Role/Relationship Status Dates Dr. Lane Sequeira MD Primary care physician Act herb Start: July 06, 2025 End: July 06, 20[address] Sequeira MD Referring Provider Active Start: July 06, 2025 End: July 06, 2025 Dr. Gokul Ortiz MD Attending physician Active Start: July 06, 2025 End: July 06, 2025 (unrecognized sect ion and content) No Status Records Found INFORMATION SOURCE (unrecogn ized section and content) DATE CREATED AUTHOR 07/19/2025 [facility] FOR RECORDS PERTAINING TO PATIENTS WHO ARE OR HAVE BEEN ENROLLED IN A CHEMICAL DEPENDENCY/SUBSTANCEABUSE PROGRAM, SOME INFORMATION MAY BE OMITTED. This clinical summary was aggregated from multiple sources. Caution should be exercised in using it in the provision of clinical care. This summary normalizes information from multiple sources, and as a consequence, information in this document may materially change the coding, format and clinical context of patient data. In addition, data may be omitted in some cases. CLINICAL DECISIONS SHOULD BE BASED ON THE PRIMARY CLINICAL RECORDS. [facility] [employer] [facility]. provides no warranty or guarantee of the accuracy or completeness of information in this document.
--- NOTE | 2025-07-19 09:25 | CL.D_ITS ---
Patient Name: LANE PEREZ Study Date: 07/19/2025 Performing: Gokul Ortiz MD Ht: 71 inches 180.34 cm : 1955 Wt: 245 lbs 111.13 kg Age: 70 Gender: male BSA: 2.3 PROCEDURE(S) PERFORMED DC01-(07420)LHC/COR/LV CLINICAL PROFILE AND INDICATIONS Indications: Suspected CAD Heart Failure: None Stress/Imaging Date: 05/12/25Calcium Score: 2227 CAD Presentations: No Sxs, no angina. CONCLUSIONS Triple-vessel disease involving two likely LAD vessels with severe proximal disease noted in both vessels. Circumflex artery with moderate disease in the distal right coronary artery stenosis present. RECOMMENDATIONS Consider referral for a heart team approach of multivessel PCI versus coronary bypass surgery DESCRIPTION OF PROCEDURE The patient arrived to the procedure lab. The risks and benefits of the procedure as well as a full description of our services here and current unavailability of surgical backup were fully explained to the patient and/or their significant other prior to the catheterization. The Timeout was completed, verifying the correct patient and procedure. The patient's procedural site was prepped and draped in the usual fashion. Local anesthetic was given subcutaneously to right radial region with Lidocaine 2%. Using a modified Seldinger technique, arterial access was obtained via the right radial artery, a 6Fr sheath was inserted. Left Coronary Artery selective angiography was performed in multiple views using a 5 Fr. 4.0 Seaside catheter. Right Coronary Artery selective angiography was then performed in multiple views using a 5 Fr. 4.0 Seaside catheter. Left Ventriculography was performed in SANCHEZ projection using a 5 Fr. Pigtail catheter. LV to AO pullback pressures were then recorded.The arterial sheath was pulled and a TR Band was applied for hemostasis. 9cc of air CORONARY ANGIOGRAPHY DOMINANCE: Co- Dominant LEFT HEART ASSESSMENT Left Ventricular Ejection Fraction: by LV Gram 55 % Normal LV wall motion Normal Left Ventricular systolic function LEFT MAIN: Mild luminal irregularities LEFT ANTERIOR DESCENDING ARTERY: Appears to have 2 left anterior descending arteries. 1 has a calcified proximal 90% stenosis with a poststenotic aneurysmal dilatation. The distal vessel continues with mild disease. CIRCUMFLEX ARTERY: Codominant circumflex artery with proximal 40% stenosis, first obtuse marginal branch with mild diffuse disease, and an AV groove branch with 50 to 60% stenosis. RIGHT CORONARY ARTERY: Codominant vessel with mild calcification and mild diffuse disease in proximal 80% stenosis noted in the proximal PDA COMPLICATIONS No Complications PROCEDURE MEDICATIONS Fentanyl 50 mcg IV Versed 1 mg IV Versed 1 mg IV Oxygen: 2 L/min via nasal cannula Heparin given IA 07/19/2025 08:26:00 Verapamil 2.5mg, Ntg 100mcgs, 3000 units of Heparin given IA 07/19/2025 08:26:00 SUMMARY OF HEMODYNAMIC DATA Time AIR REST ECG 07:25:52 ECG 08:08:43 Art 145/81 (107) 08:38:30 AO 129/79 (102) SA 08:39:58 LV 122/4, 13 08:49:56 LV 108/9, 13 08:50:04 LV 129/8, 16 08:52:56 LVp 122/8, 16 08:53:04 AOp 131/75 (98) 08:53:09 AO 127/78 (101) 09:01:43 Signed By Gokul Ortiz MD On 07/19/2025 09:24:35 Gokul Ortiz MD
== END 2025-07-19 10:32 | disposition home or self-care (01) ==
PROVIDERS: PCP Family Medicine; Referring Provider Internal Medicine Cardiovascular Disease; Visit Provider Internal Medicine Cardiovascular Disease
DX: I25.10 Atherosclerotic heart disease of native coronary artery without angina pectoris (principal); I10 Essential (primary) hypertension; E78.5 Hyperlipidemia, unspecified; R94.39 Abnormal result of other cardiovascular function study; Z79.82 Long term (current) use of aspirin; Z79.899 Other long term (current) drug therapy
CPT/HCPCS: 93458; 99152; 99153; Q9967; C1769; C1894

== ENCOUNTER → 2025-08-11 | Outpatient (CLI) | payer MEDICARE, OTHER, SELFPAY ==
--- NOTE | 2025-08-13 11:17 | STRESSREP ---
Stress Test Report Exercise stress test. 70-year-old man with a history of triple-vessel disease. Stress protocol: Resting EKG demonstrates normal sinus rhythm with a rate of 67 bpm resting blood pressure is 128/82 mmHg. The patient exercised according to the regular Fernando protocol for a total duration of 6 minutes attaining a maximum heart rate of 139 bpm which was 92% of maximum predicted heart rate; the maximum workload was 7 metabolic equivalents. At rest there were no ST or T wave changes noted to suggest ischemia and at peak exercise upsloping ST changes only were noted which did not meet the criteria for ischemia. No clinical angina was noted the test was terminated due to the target heart rate being achieved/fatigue. The peak blood pressure was 184/70 mmHg. Rate-pressure product was 24,000. Conclusion: Exercise stress test with no EKG criteria for ischemia or chest pain noted. Occasional premature ventricular complexes noted.
== END | disposition home or self-care (01) ==
LOC: CVS 10:25
PROVIDERS: PCP Family Medicine; Referring Provider Thoracic Surgery (Cardiothoracic Vascular Surgery); Visit Provider Thoracic Surgery (Cardiothoracic Vascular Surgery)
DX: I25.10 Atherosclerotic heart disease of native coronary artery without angina pectoris (principal)
CPT/HCPCS: 93017

== ENCOUNTER → 2025-08-12 | Outpatient (CLI) | payer MEDICARE, OTHER, SELFPAY ==
--- NOTE | 2025-08-12 12:38 | ECHOCS_ITS ---
Reason For Study Reason For Study: CAD/ASHD Procedure This was a 2D Doppler, Color Flow transthoracic echocardiogram. The study was technically limited. Contrast injection was performed. Exam performed in department. Left Ventricle Normal LV size. The left ventricular ejection fraction is 65 %. No regional wall motion abnormalities noted. Right Ventricle Normal RV size. Normal systolic function. Atria Normal left atrium. Normal right atrium. Mitral Valve Normal mitral valve. Tricuspid Valve Normal tricuspid valve. Aortic Valve Trisinus/trileaflet aortic valve. Pulmonic Valve Normal pulmonic valve. Great Vessels Normal aortic root. The pulmonary artery is normal size. Inferior vena cava collapse with respiration. Pericardium/Pleural No pericardial effusion. Medication 22 gauge I.V. with prn adaptor inserted into right arm. Diluted definity 2ml given slow IV push to enhance endocardial definition. MMode/2D Measurements & Calculations Ao root diam: 3.9 cm LAV(MOD-bp): 47.9 ml LVAd ap4: 36.7 cm2 LAV(MOD-bp) Indexed: 26.8 ml/m2 LVLd ap4: 8.8 cm LAV(MOD-sp2): 39.2 ml EDV(MOD-sp4): 129.0 ml LAV(MOD-sp4): 52.4 ml EDV(sp4-el): 130.5 ml LVAs ap4: 17.6 cm2 LVLs ap4: 6.3 cm ESV(MOD-sp4): 42.0 ml ESV(sp4-el): 42.0 ml EF(MOD-sp4): 67.5 % EF(sp4-el): 67.9 % SV(MOD-sp4): 87.0 ml SV(sp4-el): 88.6 ml LA A4 area: 19.5 cm2 SI(MOD-sp4): 48.8 ml/m2 LA dimension(2D): 5.0 cm RA A4 area: 15.0 cm2 Time Measurements MV dec time: 0.25 sec Doppler Measurements & Calculations MV E max hamzah: 61.2 cm/sec Lat Peak E' Hamzah: 9.4 cm/sec Med Peak E' Hamzah: 7.6 cm/sec MV A max hamzah: 58.9 cm/sec E/E' lat: 6.5 E/E' med: 8.0 MV E/A: 1.0 MV V2 max: 59.3 cm/sec MV dec slope: 305.9 cm/sec2 Ao V2 max: 132.5 cm/sec MV max P.4 mmHg Ao max P.0 mmHg MV V2 mean: 41.9 cm/sec Ao V2 mean: 94.7 cm/sec MV mean P.77 mmHg Ao mean P.1 mmHg MV V2 VTI: 20.0 cm Ao V2 VTI: 29.2 cm AV (velocity ratio): 0.76 LV V1 max: 99.7 cm/sec PA V2 max: 101.6 cm/sec LV V1 max P.0 mmHg PA V2 mean: 71.4 cm/sec LV V1 mean P.2 mmHg LV V1 mean: 68.5 cm/sec LV V1 VTI: 22.1 cm ECHO/Echo Complete W/ Contrast Interpretation Summary Normal LV size. The left ventricular ejection fraction is 65 %. Contrast injection was performed. Ordering Physician: Gokul Ortiz Referring Physician: Gokul Ortiz Performed By: Rola Garcia RCS
--- NOTE | 2025-08-12 12:38 | CDU_ITS ---
Reason For Study Reason For Study: CAROTID STENOSIS Rt. Velocities/BP Lt. Velocities/BP Prox CCA 89.7/9.5 cm/sec. Prox CCA 110.7/17.5 cm/sec. Mid CCA 64.7/12.0 cm/sec. Mid CCA 101.6/21.2 cm/sec. Dist CCA 59.2/14.2 cm/sec. Dist CCA 65.9/10.1 cm/sec. Prox ICA 52.6/18.6 cm/sec. Prox ICA 36.8/12.4 cm/sec. Mid ICA 73.5/24.1 cm/sec. Mid ICA 79.0/25.2 cm/sec. Dist ICA 62.5/21.9 cm/sec. Dist ICA 77.9/27.4 cm/sec. Rt. ICA/CCA = 73.5/64.7=1.1. Lt. ICA/CCA = 79.0/101.6=0.8. Prox ECA 83.4/16.4 cm/sec. Prox ECA 62.5/10.1 cm/sec. Rt. Vert. 30.2/8.5 cm/sec. Lt. Vert. 34.9/11.2 cm/sec. Right Extracranial There is homogeneous, smooth atherosclerotic plaque noted in the right common carotid artery. There is homogeneous, smooth atherosclerotic plaque noted in the right internal carotid artery. There is intimal thickening but no significant atherosclerotic plaque noted in the right external carotid artery. Antegrade flow is noted in the right vertebral artery. Left Extracranial There is intimal thickening but no significant atherosclerotic plaque noted in the left common carotid artery. There is homogeneous, smooth atherosclerotic plaque noted in the left internal carotid artery. There is no significant atherosclerotic plaque noted in the left external carotid artery. Antegrade flow is noted in the left vertebral artery. Procedure Carotid Duplex 72737. This is a Carotid Duplex examination using B-mode, color flow and specral Doppler. Exam performed in department. VL/Carotid Duplex Ultrasound Interpretation Summary Mild (<50%) stenosis right extracranial internal carotid. Mild (<50%) stenosis left extracranial internal carotid. Patent and antegrade vertebrals bilaterally. Ordering Physician: Gokul Ortiz Referring Physician: Lane Sequeira Performed By: Winnie Tong, ADAM, RVT
== END | disposition home or self-care (01) ==
LOC: CVS 12:37
PROVIDERS: PCP Family Medicine; Referring Provider Internal Medicine Cardiovascular Disease; Visit Provider Internal Medicine Cardiovascular Disease
DX: R09.89 Other specified symptoms and signs involving the circulatory and respiratory systems (principal); R94.30 Abnormal result of cardiovascular function study, unspecified; I65.23 Occlusion and stenosis of bilateral carotid arteries; I25.10 Atherosclerotic heart disease of native coronary artery without angina pectoris; I10 Essential (primary) hypertension; E78.5 Hyperlipidemia, unspecified
CPT/HCPCS: 93306; 93880; Q9957; A4216; C8929

== ENCOUNTER → 2025-09-12 | Outpatient (CLI) | payer MEDICARE, OTHER, SELFPAY ==
--- NOTE | 2025-09-12 16:25 | CT_ITS ---
PROCEDURE: CHEST WITH CONTRAST 09/12/2025 REASON FOR EXAM: CORONARY ARTERY DISEASE INVOLVING [place] CORONARY ARTERY OF NATIV TECHNIQUE: Procedure Code: CTCHW Modality: CT Procedure: CHEST WITH CONTRAST Coronal and Sagittal reconstruction series were provided. CONTRAST: Isovue 370 VOLUME: 100 mL One or more dose reduction techniques were used (e.g., Automated exposure control, adjustment of the mA and/or kV according to patient size, use of iterative reconstruction technique). RADIATION DOSE SUMMARY: CTDlvol: 13.30+ 15.27 mGy DLP: 605.84 mGycm COMPARISON: 05/11/2025 FINDINGS: Heart/pericardium: Advanced three-vessel coronary atherosclerosis and/or stents. Trace aortic annular calcification. Aorta: Trace atherosclerosis. Minimal fusiform ectasia of the ascending aorta to 4.1 x 4.1 cm. Pulmonary arteries: Normal in caliber. Lymph nodes: Unremarkable. Lungs/pleura: Unremarkable. Airways: Calcification of the tracheobronchial tree. Chest wall: Unremarkable. Upper abdomen: Unremarkable. Musculoskeletal: Minimal degenerative findings.. CT/Chest WITH Contrast IMPRESSION: 1. Advanced three-vessel coronary atherosclerosis and/or stents. 2. Additional description as above. Reading Location: [id number]
== END | disposition home or self-care (01) ==
LOC: CT 16:20
PROVIDERS: PCP Family Medicine; Referring Provider Thoracic Surgery (Cardiothoracic Vascular Surgery); Visit Provider Thoracic Surgery (Cardiothoracic Vascular Surgery)
DX: I25.10 Atherosclerotic heart disease of native coronary artery without angina pectoris (principal)
CPT/HCPCS: 71260; Q9967